=== PATIENT | female | born 1955 | race Caucasian/White ===

== ENCOUNTER 2021-03-27 13:18 | Emergency (ER) | payer OTHER ==
[~2021-03-27] VITALS: Ht 172.7 cm; Wt 156.5 kg
[2021-03-27 15:12] LABS: Albumin 3.3 g/dL (3.4-5.0); Anion Gap 8 (5-15); Blood Urea Nitrogen 13 mg/dL (7-18); Calcium 9.2 mg/dL (8.5-10.1); Carbon Dioxide 26 mmol/L (21-32); Chloride 103 mmol/L (98-107); Glucose 96 mg/dL (74-106); Sodium 137 mmol/L (136-145)
[2021-03-27 15:20] LABS: Alanine Aminotransferase 20 U/L (13-56); Alkaline Phosphatase 83 U/L (45-117); Aspartate Aminotransferase 24 U/L (15-37); BUN/Creatinine Ratio 20.6; Bilirubin, Total 0.6 mg/dL (0.2-1.0); GFR African American 122 mL/min; GFR Non-African American 100 mL/min; Total Protein 7.1 g/dL (6.4-8.2)
[2021-03-27 15:21] LABS: Basophils # (auto) 0.1 10 ^3/uL (0-0.2); Basophils % (auto) 0.7 % (0.0-2.0); Eosinophils # (auto) 0.1 10 ^3/uL (0-0.8); Eosinophils % (auto) 1.8 % (0.0-7.0); Hematocrit 42.3 % (36.0-46.0); Hemoglobin 14.3 g/dL (12.2-16.2); Lymphocytes # (auto) 2.5 10 ^3/uL (0.4-5.4); Lymphocytes % (auto) 34.8 % (10.0-50.0); Mean Corpuscular Hemoglobin 27.8 pg (28.0-32.0); Mean Corpuscular Hgb Conc. 33.8 g/dL (32.0-36.0); Mean Corpuscular Volume 82.2 fL (80.0-100.0); Monocytes # (auto) 0.5 10 ^3/uL (0-1.3); Monocytes % (auto) 6.5 % (0.0-12.0); Neutrophils % (auto) 56.2 % (37.0-80.0); Platelet Count (auto) 326 10^3/uL (140-450); Red Blood Cells 5.15 10^6/uL (4.0-5.20); Red Cell Distribution Width 15.2 % (11.8-14.3); White Blood Cell 7.2 10^3/uL (4.4-10.8)
[2021-03-27 15:28] LABS: Potassium 3.9 mmol/L (3.5-5.1)
[2021-03-27] MEDS ORDERED: METOPROLOL TARTRATE 50 MG TAB PO ONE (15:45)
[2021-03-27] MEDS ORDERED: METOPROLOL TARTRATE 1MG/1ML-5ML VIAL IV ONE (15:45)
[2021-03-27 16:13] VITALS: BP 83/54
[2021-03-27] MEDS ORDERED: METOPROLOL TARTRATE 25 MG TAB ONE (18:00)
[2021-03-27] MEDS ORDERED: METOPROLOL TARTRATE 25 MG TAB PO ONE (18:00)
== END 2021-03-27 18:07 | disposition home or self-care (01) ==
LOC: EDBD 13:18 → ER 13:18
DX: I48.91 Unspecified atrial fibrillation (principal); J18.9 Pneumonia, unspecified organism; Z88.8 Allergy status to other drugs, medicaments and biological substances; Z88.7 Allergy status to serum and vaccine
CPT/HCPCS: 36415; 71045; 80053; 84484; 85025; 93005; 96374

== ENCOUNTER 2021-09-30 00:37 | Inpatient (IN) | payer OTHER ==
[~2021-09-30] VITALS: Ht 167.6 cm; Wt 184.0 kg
[2021-09-30 02:28] LABS: Hemoglobin 10.5 g/dL (12.2-16.2); Mean Corpuscular Hemoglobin 28.1 pg (28.0-32.0); Mean Corpuscular Hgb Conc. 33.9 g/dL (32.0-36.0); Mean Corpuscular Volume 82.9 fL (80.0-100.0); Red Blood Cells 3.74 10^6/uL (4.0-5.20); Red Cell Distribution Width 13.8 % (11.8-14.3); White Blood Cell 26.1 10^3/uL (4.4-10.8)
[2021-09-30 02:35] LABS: Basophils % (manual) 0 (0.0-2.0); Blast Cells 0; Eosinophils % (manual) 0 (0-7); Myelocytes % 0; Promyelocytes % 0; Reactive Lymphocytes 0
[2021-09-30 02:41] LABS: Albumin 1.8 g/dL (3.4-5.0); Blood Urea Nitrogen 70 mg/dL (7-18); Calcium 7.8 mg/dL (8.5-10.1); Carbon Dioxide 26 mmol/L (21-32); Glucose 110 mg/dL (74-106)
[2021-09-30 02:44] LABS: Alanine Aminotransferase 10 U/L (13-56); Alkaline Phosphatase 84 U/L (45-117); Aspartate Aminotransferase 30 U/L (15-37); BUN/Creatinine Ratio 15.1; Bilirubin, Total 0.4 mg/dL (0.2-1.0); GFR African American 12 mL/min; GFR Non-African American 10 mL/min; Total Protein 5.8 g/dL (6.4-8.2)
[2021-09-30 02:46] LABS: INR 3.4 (0.9-1.15)
[2021-09-30] MEDS ORDERED: SODIUM CHLORIDE 0.9% 1,000 ML IV ONE ×3 (03:30→11:15)
[2021-09-30 04:32] LABS: Band Neutrophils % (manual) 4; Lymphocytes % (manual) 6 (10.0-50.0); Metamyelocytes % 1; Monocytes % (manual) 7 (0-12)
[2021-09-30] MEDS ORDERED: dilTIAZem 25 MG/5 ML VIAL IV ONE (05:30)
[2021-09-30] MEDS ORDERED: PIPERACILLIN-TAZOB 3.375GM 100 ML IV ONE (05:30)
[2021-09-30] MEDS ORDERED: VANCOMYCIN 1GM/250ML 250 ML IV ONE ×3 (05:30→15:45)
[2021-09-30 06:01] LABS: Magnesium 2.3 mg/dL (1.6-2.6)
[2021-09-30 06:04] LABS: Anion Gap 4.00001 (5-15); Chloride < 50 mmol/L (98-107); Potassium 2.1 mmol/L (3.5-5.1); Sodium 80 mmol/L (136-145)
[2021-09-30] MEDS ORDERED: SODIUM CHL 3% 500 ML IV ONE (06:45)
[2021-09-30] MEDS ORDERED: hydrALAZINE HCL 20 MG/ML VL IV PRN (06:45)
[2021-09-30] MEDS ORDERED: MORPHINE SULFATE INJECTION 2 MG/ML SYRG IV PRN (06:45)
[2021-09-30] MEDS ORDERED: VANCOMYCIN PER PHARMACY 0 MG IV SCH (06:45)
[2021-09-30] MEDS ORDERED: ONDANSETRON HCL 4 MG/2 ML VIAL IV PRN (06:45)
[2021-09-30] MEDS ORDERED: ALBUMIN 25% 100 ML IV ONE (06:45)
[2021-09-30] MEDS ORDERED: ACETAMINOPHEN 325 MG TAB PO PRN (06:45)
[2021-09-30] MEDS ORDERED: DOCUSATE SOD 100 MG CAP PO PRN (06:45)
[2021-09-30] MEDS ORDERED: NITROGLYCERIN 0.4 MG SL TAB SL PRN (06:45)
[2021-09-30] MEDS: dilTIAZem 125mg/125ml BAG KIT 100 ML IV SCH (07:45)
[2021-09-30 08:14] LABS: Albumin 1.9 g/dL (3.4-5.0); Calcium 8.2 mg/dL (8.5-10.1); Potassium 4.1 mmol/L (3.5-5.1)
[2021-09-30 08:16] LABS: Lactic Acid w/Reflex 2.3 mmol/L (0.4-2.0)
[2021-09-30 08:18] LABS: BUN/Creatinine Ratio 15.2; Bilirubin, Total 0.4 mg/dL (0.2-1.0)
[2021-09-30] MEDS ORDERED: FAMOTIDINE (10MG/ML) 2ML VL IV SCH (10:00)
[2021-09-30] MEDS: APIXABAN 2.5 MG TAB PO SCH ×2 (10:57→22:44)
[2021-09-30] MEDS: ZINC SULFATE 220mg CAP or TAB PO SCH (10:58)
[2021-09-30] MEDS: ASCORBIC ACID 500 MG TAB PO SCH ×2 (10:59→22:44)
[2021-09-30] MEDS: MULTIPLE VITAMIN TAB PO SCH (10:59)
[2021-09-30] MEDS ORDERED: VASOPRESSIN 50 UNITS in D5W 5% 247.5 ML IV SCH (11:15)
[2021-09-30] MEDS: POTASSIUM CHL 20MEQ/100ML 100 ML IV SCH (11:34)
[2021-09-30] MEDS: ALBUMIN 25% 100 ML IV SCH ×2 (13:31→17:48)
[2021-09-30] MEDS: SODIUM CHLOR 0.9% PF (SALINE LOCK) 10ML VIAL/SYR IV SCH ×2 (13:44→22:44)
[2021-09-30] MEDS ORDERED: HEPARIN SODIUM (PORCINE) 5000 UNITS/ML 1ML VIAL SC SCH (14:00)
[2021-09-30] MEDS: PANTOPRAZOLE 40mg/50ML NS AE 50 ML IV SCH ×3 (14:22→22:43)
[2021-09-30] MEDS ORDERED: NOREPINEPHRINE 8 MG/250ML KIT 250 ML IV ONE (14:48)
[2021-09-30] MEDS ORDERED: SODIUM CHLORIDE 0.9% 500 ML IV ONE (15:00)
[2021-09-30] MEDS ORDERED: AMIODARONE HCL 150 MG in D5W 5% 100 ML IV ONE (15:00)
[2021-09-30] MEDS ORDERED: AMIODARONE 450mg/250ml AE 250 ML IV SCH (15:00)
[2021-09-30] MEDS: NOREPINEPHRINE 8 MG/250ML KIT 250 ML IV SCH ×2 (15:07→21:14)
[2021-09-30] MEDS: PIPERACILLIN-TAZOB 2.25GM 50 ML IV SCH ×2 (16:21→22:44)
[2021-09-30 21:05] LABS: Hematocrit 29.9 % (36.0-46.0); Hemoglobin 9.6 g/dL (12.2-16.2); Mean Corpuscular Hemoglobin 26.6 pg (28.0-32.0)
[2021-09-30 21:08] LABS: Mean Corpuscular Volume 83.1 fL (80.0-100.0); Red Cell Distribution Width 14.2 % (11.8-14.3)
[2021-09-30] MEDS: AMIODARONE 450mg/250ml AE 250 ML IV SCH (21:13)
[2021-09-30 21:28] LABS: White Blood Cell 46.6 10^3/uL (4.4-10.8)
[2021-09-30 21:29] LABS: Band Neutrophils % (manual) 0; Basophils % (manual) 0 (0.0-2.0); Blast Cells 0; Eosinophils % (manual) 0 (0-7); Metamyelocytes % 0; Myelocytes % 0; Promyelocytes % 0; Reactive Lymphocytes 0
[2021-09-30 23:54] LABS: Lymphocytes % (manual) 7 (10.0-50.0); Monocytes % (manual) 8 (0-12)
[2021-10-01] MEDS: ALBUMIN 25% 100 ML IV SCH ×4 (01:09→18:00)
[2021-10-01] MEDS: NOREPINEPHRINE 8 MG/250ML KIT 250 ML IV SCH (02:36)
[2021-10-01] MEDS: dilTIAZem 125mg/125ml BAG KIT 100 ML IV SCH ×2 (02:59→23:04)
[2021-10-01] MEDS: PANTOPRAZOLE 40mg/50ML NS AE 50 ML IV SCH ×2 (02:59→08:46)
[2021-10-01] MEDS: SODIUM CHLOR 0.9% PF (SALINE LOCK) 10ML VIAL/SYR IV SCH ×3 (06:15→23:03)
[2021-10-01] MEDS: PIPERACILLIN-TAZOB 2.25GM 50 ML IV SCH (06:16)
[2021-10-01] MEDS: POTASSIUM CHL 20MEQ/100ML 100 ML IV SCH (06:24)
[2021-10-01 07:33] LABS: Hematocrit 26.3 % (36.0-46.0); Hemoglobin 8.6 g/dL (12.2-16.2); Mean Corpuscular Hgb Conc. 32.5 g/dL (32.0-36.0); Red Blood Cells 3.17 10^6/uL (4.0-5.20); Red Cell Distribution Width 14.3 % (11.8-14.3)
[2021-10-01 07:38] LABS: White Blood Cell 36.7 10^3/uL (4.4-10.8)
[2021-10-01 07:39] LABS: Band Neutrophils % (manual) 0; Basophils % (manual) 0 (0.0-2.0); Blast Cells 0; Eosinophils % (manual) 0 (0-7); Metamyelocytes % 0; Myelocytes % 0; Promyelocytes % 0; Reactive Lymphocytes 0
[2021-10-01 07:41] LABS: Potassium 4.1 mmol/L (3.5-5.1)
[2021-10-01 07:47] LABS: Albumin 2.9 g/dL (3.4-5.0); BUN/Creatinine Ratio 14.5; Bilirubin, Total 0.6 mg/dL (0.2-1.0); Total Protein 5.8 g/dL (6.4-8.2)
[2021-10-01 08:24] LABS: Lymphocytes % (manual) 12 (10.0-50.0); Monocytes % (manual) 2 (0-12)
[2021-10-01 08:50] LABS: INR 4.75 (0.9-1.15); Partial Thromboplastin Time 80.9 sec (23.6-33.0)
[2021-10-01] MEDS: ZINC SULFATE 220mg CAP or TAB PO SCH (10:00)
[2021-10-01] MEDS: ASCORBIC ACID 500 MG TAB PO SCH (10:01)
[2021-10-01] MEDS: MULTIPLE VITAMIN TAB PO SCH (10:01)
[2021-10-01] MEDS ORDERED: VANCOMYCIN 500 MG in D5W 5% 100 ML IV ONE (10:30)
[2021-10-01] MEDS ORDERED: DOPamine 1600MCG/ML D5W 250 ML IV SCH (11:00)
[2021-10-01] MEDS ORDERED: PHYTONADIONE(VitK) ORAL Susp 5mg/5ml(1mg/ml) PO ONE (11:15)
[2021-10-01] MEDS: MEROPENEM 500MG IVPB 50 ML IV SCH (11:15)
[2021-10-01] MEDS: HYDROcodone-ACET 5/325MG TAB PO PRN ×3 (11:30→20:35)
[2021-10-01] MEDS: AMIODARONE 450mg/250ml AE 250 ML IV SCH ×2 (12:00→21:33)
[2021-10-01 12:55] LABS: Hepatitis B Surface Antibody Negative (Negative)
[2021-10-01 13:34] LABS: Hepatitis A Total Antibody Negative (Negative)
[2021-10-01] MEDS ORDERED: MEROPENEM 1GM IVPB 100 ML IV SCH (14:00)
[2021-10-01 14:16] LABS: Hepatitis B Core IgM Negative
[2021-10-01 14:17] LABS: Hepatitis C Antibody Negative (Negative)
[2021-10-01 14:22] LABS: BUN/Creatinine Ratio 14.9; Potassium 4.3 mmol/L (3.5-5.1)
[2021-10-01 15:20] VITALS: BP 157/73
[2021-10-01 15:35] VITALS: BP 145/63
[2021-10-01 16:00] VITALS: BP 126/78
[2021-10-01 16:55] VITALS: BP 100/68
[2021-10-01 17:14] LABS: Urine Bacteria NONE SEEN /hpf (None Seen); Urine Blood 3+ /uL (Negative); Urine Hyaline Cast FEW /lpf (0 - 2); Urine Mucus FEW (None Seen); Urine Specific Gravity 1.025 (1.001-1.035); Urine WBC 7 /hpf (0 - 5)
[2021-10-01] MEDS: PANTOPRAZOLE 40 MG/10 ML VIAL INJ IV SCH (23:03)
[2021-10-02] MEDS: ALBUMIN 25% 100 ML IV SCH ×3 (00:47→12:23)
[2021-10-02] MEDS: HYDROcodone-ACET 5/325MG TAB PO PRN ×6 (00:47→23:03)
[2021-10-02 01:13] LABS: Protein, Urine 106.6 mg/dL (0.0-11.9); Sodium Urine < 5 mmol/L (40-220)
[2021-10-02 01:19] LABS: Creatinine, Urine 334 mg/dL (30.0-125.0)
[2021-10-02] MEDS: NOREPINEPHRINE 8 MG/250ML KIT 250 ML IV SCH (02:10)
[2021-10-02] MEDS: SODIUM CHLOR 0.9% PF (SALINE LOCK) 10ML VIAL/SYR IV SCH ×3 (07:10→22:13)
[2021-10-02 07:24] LABS: Hematocrit 23.9 % (36.0-46.0); Hemoglobin 7.8 g/dL (12.2-16.2); Mean Corpuscular Hemoglobin 27.6 pg (28.0-32.0); Mean Corpuscular Hgb Conc. 32.4 g/dL (32.0-36.0); Mean Corpuscular Volume 85.1 fL (80.0-100.0); Red Blood Cells 2.81 10^6/uL (4.0-5.20); Red Cell Distribution Width 14.4 % (11.8-14.3)
[2021-10-02 07:29] LABS: White Blood Cell 30.8 10^3/uL (4.4-10.8)
[2021-10-02 07:31] LABS: Basophils % (manual) 0 (0.0-2.0); Blast Cells 0; Eosinophils % (manual) 0 (0-7); Metamyelocytes % 0; Myelocytes % 0; Promyelocytes % 0; Reactive Lymphocytes 0
[2021-10-02 08:06] LABS: Immunoglobulin G, Serum 588 mg/dL (586-1602)
[2021-10-02 08:56] LABS: Potassium 4.4 mmol/L (3.5-5.1)
[2021-10-02 09:04] LABS: Band Neutrophils % (manual) 2; Lymphocytes % (manual) 7 (10.0-50.0); Monocytes % (manual) 7 (0-12)
[2021-10-02 09:41] LABS: BUN/Creatinine Ratio 16.3
[2021-10-02 09:42] LABS: Albumin 3.2 g/dL (3.4-5.0); Bilirubin, Total 0.7 mg/dL (0.2-1.0); Magnesium 3.4 mg/dL (1.6-2.6); Phosphorus 8.6 mg/dL (2.5-4.90); Total Protein 5.6 g/dL (6.4-8.2)
[2021-10-02] MEDS: MEROPENEM 500MG IVPB 50 ML IV SCH (10:25)
[2021-10-02] MEDS: MULTIPLE VITAMIN TAB PO SCH (10:25)
[2021-10-02] MEDS: PANTOPRAZOLE 40 MG/10 ML VIAL INJ IV SCH ×2 (10:25→22:13)
[2021-10-02] MEDS ORDERED: D5W/SOD CHLO 0.9% 500 ML IV ONE (10:30)
[2021-10-02] MEDS ORDERED: VANCOMYCIN 1GM/250ML 250 ML IV ONE (10:45)
[2021-10-02] MEDS: clonazePAM 0.5 MG TAB PO PRN ×2 (16:02→22:13)
[2021-10-02] MEDS ORDERED: PHYTONADIONE(VitK) ORAL Susp 10mg/10ml(1mg/ml) PO ONE (17:15)
[2021-10-02] MEDS: SODIUM CHLORIDE 0.9% 1,000 ML IV SCH (17:30)
[2021-10-02] MEDS: AMIODARONE 450mg/250ml AE 250 ML IV SCH (18:11)
[2021-10-02] MEDS: MIDODRINE HCL 10 MG TAB PO SCH (18:22)
[2021-10-02 22:00] VITALS: BP 94/53
[2021-10-02] MEDS: OCTREOTIDE ACETATE 100 MCG/ML VL SUBCUT SCH (22:41)
[2021-10-03] MEDS: SODIUM CHLORIDE 0.9% 1,000 ML IV SCH (02:58)
[2021-10-03] MEDS: HYDROcodone-ACET 5/325MG TAB PO PRN ×2 (03:22→20:51)
[2021-10-03 05:00] VITALS: BP 84/52
[2021-10-03] MEDS: SODIUM CHLOR 0.9% PF (SALINE LOCK) 10ML VIAL/SYR IV SCH ×3 (06:14→22:19)
[2021-10-03] MEDS: MIDODRINE HCL 10 MG TAB PO SCH ×3 (06:14→17:44)
[2021-10-03] MEDS: OCTREOTIDE ACETATE 100 MCG/ML VL SUBCUT SCH ×3 (06:15→22:18)
[2021-10-03 06:57] LABS: Hemoglobin 7.4 g/dL (12.2-16.2)
[2021-10-03 07:02] LABS: Hematocrit 22.5 % (36.0-46.0); Mean Corpuscular Hemoglobin 27.7 pg (28.0-32.0); Mean Corpuscular Hgb Conc. 32.7 g/dL (32.0-36.0); Mean Corpuscular Volume 84.6 fL (80.0-100.0); Red Blood Cells 2.66 10^6/uL (4.0-5.20); Red Cell Distribution Width 14.6 % (11.8-14.3)
[2021-10-03 07:39] LABS: Basophils % (manual) 0 (0.0-2.0); Blast Cells 0; Eosinophils % (manual) 0 (0-7); Metamyelocytes % 0; Myelocytes % 0; Promyelocytes % 0; Reactive Lymphocytes 0
[2021-10-03 07:48] LABS: INR 2.78 (0.9-1.15); Partial Thromboplastin Time 68.8 sec (23.6-33.0)
[2021-10-03 08:46] LABS: Albumin 3.3 g/dL (3.4-5.0); Potassium 5.4 mmol/L (3.5-5.1)
[2021-10-03 08:50] LABS: BUN/Creatinine Ratio 15.1; Bilirubin, Total 0.6 mg/dL (0.2-1.0); Total Protein 5.9 g/dL (6.4-8.2)
[2021-10-03 09:00] VITALS: BP 95/68
[2021-10-03] MEDS ORDERED: SODIUM BICARBONATE 8.4 % INJ 50ML VIAL IV ONE (09:00)
[2021-10-03] MEDS ORDERED: SODIUM BICARBONATE 8.4% INJ 50ML SYRINGE IV ONE (09:00)
[2021-10-03] MEDS ORDERED: SODIUM ZIRCONIUM CYCL 10 GM PAK PO ONE (09:00)
[2021-10-03] MEDS ORDERED: FUROSEMIDE 100 MG/10ML VIAL IV ONE (09:15)
[2021-10-03] MEDS ORDERED: LIDOCAINE 1% HCL (LOCAL ANESTH.) INJ 20ML MDV ID ONE ×2 (09:30→10:15)
[2021-10-03 10:17] LABS: Band Neutrophils % (manual) 3; Lymphocytes % (manual) 5 (10.0-50.0); Monocytes % (manual) 6 (0-12)
[2021-10-03] MEDS: clonazePAM 0.5 MG TAB PO PRN ×2 (10:30→17:00)
[2021-10-03] MEDS ORDERED: PHYTONADIONE(VitK) ORAL Susp 5mg/5ml(1mg/ml) PO ONE (11:00)
[2021-10-03 13:09] VITALS: BP 101/51
[2021-10-03] MEDS ORDERED: CATHFLO ACTIVASE (ALTEPLASE) 2 MG VIAL IV ONE (14:45)
[2021-10-03] MEDS ORDERED: VANCOMYCIN 750mg/250ml 250 ML IV ONE (17:00)
[2021-10-03] MEDS: AMIODARONE 450mg/250ml AE 250 ML IV SCH ×2 (17:10→23:44)
[2021-10-03] MEDS: PANTOPRAZOLE 40 MG/10 ML VIAL INJ IV SCH ×2 (17:11→22:17)
[2021-10-03] MEDS: MEROPENEM 500MG IVPB 50 ML IV SCH (17:11)
[2021-10-03] MEDS: MULTIPLE VITAMIN TAB PO SCH (17:12)
[2021-10-03] MEDS: SODIUM ZIRCONIUM CYCL 10 GM PAK PO SCH ×2 (17:13→22:18)
[2021-10-03 17:20] VITALS: BP 103/49
[2021-10-03] MEDS: ALBUMIN 25% 100 ML IV SCH ×2 (18:05→18:07)
[2021-10-03] MEDS ORDERED: ALBUMIN 25% 0 ML IV ONE (18:07)
[2021-10-03 22:00] VITALS: BP 111/61
[2021-10-04] MEDS: clonazePAM 0.5 MG TAB PO PRN (01:27)
[2021-10-04] MEDS: HYDROcodone-ACET 5/325MG TAB PO PRN ×3 (03:07→23:08)
[2021-10-04 05:00] VITALS: BP 100/43
[2021-10-04] MEDS: OCTREOTIDE ACETATE 100 MCG/ML VL SUBCUT SCH ×3 (06:15→22:45)
[2021-10-04] MEDS: MIDODRINE HCL 10 MG TAB PO SCH ×3 (06:15→17:23)
[2021-10-04] MEDS: SODIUM ZIRCONIUM CYCL 10 GM PAK PO SCH ×3 (06:15→22:44)
[2021-10-04] MEDS: SODIUM CHLOR 0.9% PF (SALINE LOCK) 10ML VIAL/SYR IV SCH ×3 (06:15→22:44)
[2021-10-04 07:13] LABS: Hematocrit 22.6 % (36.0-46.0); Hemoglobin 7.1 g/dL (12.2-16.2); Mean Corpuscular Hemoglobin 26.7 pg (28.0-32.0); Mean Corpuscular Hgb Conc. 31.3 g/dL (32.0-36.0); Mean Corpuscular Volume 85.4 fL (80.0-100.0); Red Blood Cells 2.64 10^6/uL (4.0-5.20); Red Cell Distribution Width 14.5 % (11.8-14.3)
[2021-10-04 07:19] LABS: Albumin 3.2 g/dL (3.4-5.0); Calcium 8.3 mg/dL (8.5-10.1); Potassium 5.4 mmol/L (3.5-5.1)
[2021-10-04 07:23] LABS: BUN/Creatinine Ratio 14.1; Bilirubin, Total 0.6 mg/dL (0.2-1.0); Total Protein 6.2 g/dL (6.4-8.2)
[2021-10-04 07:33] LABS: White Blood Cell 33.9 10^3/uL (4.4-10.8)
[2021-10-04 07:35] LABS: Basophils % (manual) 0 (0.0-2.0); Blast Cells 0; Metamyelocytes % 0; Promyelocytes % 0; Reactive Lymphocytes 0
[2021-10-04 08:36] LABS: Band Neutrophils % (manual) 1; Eosinophils % (manual) 1 (0-7); Lymphocytes % (manual) 7 (10.0-50.0); Monocytes % (manual) 4 (0-12); Myelocytes % 1
[2021-10-04 09:01] VITALS: BP 76/52
[2021-10-04 10:21] VITALS: BP 103/59
[2021-10-04 10:39] LABS: Acetaminophen 5.8 ug/mL (10-30); Salicylate 1.7 mg/dL (2.8-20.0)
[2021-10-04] MEDS ORDERED: VANCOMYCIN 500 MG in D5W 5% 100 ML IV ONE (11:30)
[2021-10-04 12:00] VITALS: BP 104/66
[2021-10-04] MEDS: MULTIPLE VITAMIN TAB PO SCH (13:29)
[2021-10-04] MEDS: PANTOPRAZOLE 40 MG/10 ML VIAL INJ IV SCH ×2 (13:29→22:43)
[2021-10-04] MEDS: AMIODARONE 450mg/250ml AE 250 ML IV SCH (13:33)
[2021-10-04 13:57] LABS: Hepatitis C Antibody Negative (Negative)
[2021-10-04 14:01] LABS: Hepatitis A Ab IgM Negative
[2021-10-04] MEDS: MEROPENEM 500MG IVPB 50 ML IV SCH (15:16)
[2021-10-04 17:23] VITALS: BP 96/66
[2021-10-04 22:26] VITALS: BP 109/70
[2021-10-04] MEDS: ALBUMIN 25% 100 ML IV SCH (22:43)
[2021-10-05] VITALS (14 sets, daily range): BP systolic 100–175; BP diastolic 55–92
[2021-10-05] MEDS: ALBUMIN 25% 100 ML IV SCH ×2 (05:58→14:19)
[2021-10-05] MEDS: AMIODARONE 450mg/250ml AE 250 ML IV SCH ×2 (05:59→20:28)
[2021-10-05] MEDS: SODIUM ZIRCONIUM CYCL 10 GM PAK PO SCH (06:00)
[2021-10-05] MEDS: MIDODRINE HCL 10 MG TAB PO SCH ×3 (06:00→17:26)
[2021-10-05] MEDS: SODIUM CHLOR 0.9% PF (SALINE LOCK) 10ML VIAL/SYR IV SCH ×3 (06:00→21:45)
[2021-10-05] MEDS: OCTREOTIDE ACETATE 100 MCG/ML VL SUBCUT SCH ×3 (06:00→21:45)
[2021-10-05 07:09] LABS: Hematocrit 20.2 % (36.0-46.0); Mean Corpuscular Hemoglobin 28.1 pg (28.0-32.0); Mean Corpuscular Hgb Conc. 32.8 g/dL (32.0-36.0); Mean Corpuscular Volume 85.6 fL (80.0-100.0); Red Blood Cells 2.36 10^6/uL (4.0-5.20); Red Cell Distribution Width 15.1 % (11.8-14.3)
[2021-10-05 07:14] LABS: White Blood Cell 46.7 10^3/uL (4.4-10.8)
[2021-10-05 07:15] LABS: Hemoglobin 6.6 g/dL (12.2-16.2)
[2021-10-05 07:16] LABS: Band Neutrophils % (manual) 0; Basophils % (manual) 0 (0.0-2.0); Blast Cells 0; Eosinophils % (manual) 0 (0-7); Promyelocytes % 0; Reactive Lymphocytes 0
[2021-10-05 07:34] LABS: Potassium 5.1 mmol/L (3.5-5.1)
[2021-10-05 07:59] LABS: Lymphocytes % (manual) 9 (10.0-50.0); Metamyelocytes % 4; Monocytes % (manual) 4 (0-12); Myelocytes % 2
[2021-10-05 08:36] LABS: BUN/Creatinine Ratio 13.8; Bilirubin, Total 0.6 mg/dL (0.2-1.0); Calcium 7.3 mg/dL (8.5-10.1); Total Protein 5.7 g/dL (6.4-8.2)
[2021-10-05 08:37] LABS: Albumin 3.2 g/dL (3.4-5.0)
[2021-10-05] MEDS: PANTOPRAZOLE 40 MG/10 ML VIAL INJ IV SCH ×2 (09:02→21:45)
[2021-10-05] MEDS: MULTIPLE VITAMIN TAB PO SCH (09:02)
[2021-10-05] MEDS: MEROPENEM 500MG IVPB 50 ML IV SCH (09:03)
[2021-10-05 09:47] LABS: INR 2.28 (0.9-1.15); Partial Thromboplastin Time 64.7 sec (23.6-33.0)
[2021-10-05] MEDS ORDERED: LORazepam 2MG/ML-1ML VIAL IV ONE (10:00)
[2021-10-05] MEDS ORDERED: PHYTONADIONE(VitK) ORAL Susp 10mg/10ml(1mg/ml) PO ONE (10:30)
[2021-10-05 11:17] LABS: Cholesterol 71 mg/dL (< 200)
[2021-10-05 11:20] LABS: HDL Cholesterol 17 mg/dL (40-59); LDL Cholesterol 28 mg/dL (< 100); Triglycerides 164 mg/dL (< 150)
[2021-10-05] MEDS: MORPHINE SULFATE INJECTION 2 MG/ML SYRG IV PRN (16:50)
[2021-10-05] MEDS ORDERED: VANCOMYCIN 500 MG in D5W 5% 100 ML IV ONE (17:00)
[2021-10-06] MEDS: MORPHINE SULFATE INJECTION 2 MG/ML SYRG IV PRN ×2 (04:53→20:43)
[2021-10-06 05:07] VITALS: BP 160/87
[2021-10-06 05:15] LABS: Hematocrit 23.4 % (36.0-46.0); Hemoglobin 7.5 g/dL (12.2-16.2); Mean Corpuscular Hemoglobin 27.5 pg (28.0-32.0); Mean Corpuscular Hgb Conc. 32.1 g/dL (32.0-36.0); Mean Corpuscular Volume 85.5 fL (80.0-100.0); Red Blood Cells 2.74 10^6/uL (4.0-5.20); Red Cell Distribution Width 15.3 % (11.8-14.3)
[2021-10-06 05:27] LABS: INR 1.87 (0.9-1.15); Partial Thromboplastin Time 65.4 sec (23.6-33.0)
[2021-10-06 05:46] LABS: White Blood Cell 42.9 10^3/uL (4.4-10.8)
[2021-10-06 05:47] LABS: Basophils % (manual) 0 (0.0-2.0); Blast Cells 0; Eosinophils % (manual) 0 (0-7); Promyelocytes % 0; Reactive Lymphocytes 0
[2021-10-06] MEDS: SODIUM CHLOR 0.9% PF (SALINE LOCK) 10ML VIAL/SYR IV SCH ×3 (06:00→21:49)
[2021-10-06] MEDS: MIDODRINE HCL 10 MG TAB PO SCH ×3 (06:35→17:50)
[2021-10-06 06:36] LABS: Potassium 5.3 mmol/L (3.5-5.1)
[2021-10-06] MEDS: OCTREOTIDE ACETATE 100 MCG/ML VL SUBCUT SCH ×3 (06:36→21:51)
[2021-10-06 06:37] LABS: Albumin 3.1 g/dL (3.4-5.0); BUN/Creatinine Ratio 12.5; Bilirubin, Total 0.7 mg/dL (0.2-1.0); Calcium 7.9 mg/dL (8.5-10.1); Total Protein 5.6 g/dL (6.4-8.2)
[2021-10-06 09:00] VITALS: BP 118/48
[2021-10-06 09:00] LABS: Band Neutrophils % (manual) 8; Lymphocytes % (manual) 8 (10.0-50.0); Metamyelocytes % 2; Monocytes % (manual) 3 (0-12); Myelocytes % 1
[2021-10-06] MEDS: MULTIPLE VITAMIN TAB PO SCH (09:50)
[2021-10-06] MEDS: PANTOPRAZOLE 40 MG/10 ML VIAL INJ IV SCH ×2 (09:51→21:49)
[2021-10-06] MEDS: MEROPENEM 500MG IVPB 50 ML IV SCH (10:24)
[2021-10-06] MEDS ORDERED: PHYTONADIONE(VitK) ORAL Susp 5mg/5ml(1mg/ml) PO ONE (11:30)
[2021-10-06 13:00] VITALS: BP 129/66
[2021-10-06 17:00] VITALS: BP 129/62
[2021-10-06] MEDS: ALPRAZolam 0.25 MG TAB PO PRN (18:10)
[2021-10-06 22:00] VITALS: BP 124/61
[2021-10-06] MEDS ORDERED: AMIODARONE HCL 200 MG TAB PO SCH (22:00)
[2021-10-07] MEDS: HYDROcodone-ACET 5/325MG TAB PO PRN (01:20)
[2021-10-07 05:00] VITALS: BP 101/74
[2021-10-07] MEDS: MIDODRINE HCL 10 MG TAB PO SCH (05:16)
[2021-10-07] MEDS: OCTREOTIDE ACETATE 100 MCG/ML VL SUBCUT SCH (05:17)
[2021-10-07] MEDS: SODIUM CHLOR 0.9% PF (SALINE LOCK) 10ML VIAL/SYR IV SCH (05:17)
[2021-10-07 05:52] LABS: Hematocrit 24.3 % (36.0-46.0); Mean Corpuscular Hemoglobin 28.2 pg (28.0-32.0); Mean Corpuscular Volume 85.6 fL (80.0-100.0); Red Blood Cells 2.84 10^6/uL (4.0-5.20); Red Cell Distribution Width 15.1 % (11.8-14.3)
[2021-10-07 06:06] LABS: INR 1.83 (0.9-1.15)
[2021-10-07 06:08] LABS: Basophils % (manual) 0 (0.0-2.0); Blast Cells 0; Promyelocytes % 0; Reactive Lymphocytes 0; White Blood Cell 41.9 10^3/uL (4.4-10.8)
[2021-10-07 06:46] LABS: Albumin 2.9 g/dL (3.4-5.0); Calcium 7.8 mg/dL (8.5-10.1)
[2021-10-07 06:49] LABS: BUN/Creatinine Ratio 13.6; Bilirubin, Total 0.8 mg/dL (0.2-1.0); Total Protein 5.6 g/dL (6.4-8.2)
[2021-10-07] MEDS: ALPRAZolam 0.25 MG TAB PO PRN (07:50)
[2021-10-07] MEDS ORDERED: ALBUMIN 25% 100 ML IV SCH (08:00)
[2021-10-07 08:32] LABS: Potassium 5.7 mmol/L (3.5-5.1)
[2021-10-07 08:42] LABS: Band Neutrophils % (manual) 13; Eosinophils % (manual) 1 (0-7); Lymphocytes % (manual) 4 (10.0-50.0); Metamyelocytes % 1; Monocytes % (manual) 1 (0-12); Myelocytes % 1
[2021-10-07] MEDS ORDERED: EPOETIN ALFA-EPBX 4,000 UNIT/ML VIAL SC ONE (21:00)
== END 2021-10-07 09:20 | DRG 871 ==
LOC: EDBD 00:37 → ER 00:39 → OVERFLOW 07:50 → TELE-CENTR 10-02 21:04
PROVIDERS: ADMIT Nurse Practitioner Family; ATTEND Internal Medicine
PROC: 05HY33Z Insertion of Infusion Device into Upper Vein, Percutaneous Approach (ICD-10-PCS; 2021-09-30)
PROC: 30233K1 Transfusion of Nonautologous Frozen Plasma into Peripheral Vein, Percutaneous Approach (ICD-10-PCS; 2021-10-01)
PROC: 5A1D70Z Performance of Urinary Filtration, Intermittent, Less than 6 Hours Per Day (ICD-10-PCS; principal; 2021-10-03)
PROC: 02HV33Z Insertion of Infusion Device into Superior Vena Cava, Percutaneous Approach (ICD-10-PCS; 2021-10-03)
PROC: B543ZZA Ultrasonography of Right Jugular Veins, Guidance (ICD-10-PCS; 2021-10-03)
PROC: 5A1D70Z Performance of Urinary Filtration, Intermittent, Less than 6 Hours Per Day (ICD-10-PCS; 2021-10-05)
PROC: 30233N1 Transfusion of Nonautologous Red Blood Cells into Peripheral Vein, Percutaneous Approach (ICD-10-PCS; 2021-10-05)
PROC: 5A1D70Z Performance of Urinary Filtration, Intermittent, Less than 6 Hours Per Day (ICD-10-PCS; 2021-10-07)
DX: A41.9 Sepsis, unspecified organism (principal); N17.0 Acute kidney failure with tubular necrosis; R65.21 Severe sepsis with septic shock; D62 Acute posthemorrhagic anemia; R18.8 Other ascites; E87.1 Hypo-osmolality and hyponatremia; Z68.44 Body mass index [BMI] 60.0-69.9, adult; D68.9 Coagulation defect, unspecified; K62.5 Hemorrhage of anus and rectum; B18.1 Chronic viral hepatitis B without delta-agent; K72.10 Chronic hepatic failure without coma; E88.09 Other disorders of plasma-protein metabolism, not elsewhere classified; M79.7 Fibromyalgia; I48.91 Unspecified atrial fibrillation; D75.839 Thrombocytosis, unspecified; K74.60 Unspecified cirrhosis of liver; Z20.822 Contact with and (suspected) exposure to COVID-19; E78.5 Hyperlipidemia, unspecified; E66.01 Morbid (severe) obesity due to excess calories; E87.6 Hypokalemia; I12.9 Hypertensive chronic kidney disease with stage 1 through stage 4 chronic kidney disease, or unspecified chronic kidney disease; K75.4 Autoimmune hepatitis; J45.909 Unspecified asthma, uncomplicated; K75.81 Nonalcoholic steatohepatitis (NASH); N18.9 Chronic kidney disease, unspecified; F32.A Depression, unspecified; R31.0 Gross hematuria; F41.9 Anxiety disorder, unspecified; Z79.01 Long term (current) use of anticoagulants; Z99.2 Dependence on renal dialysis; Z82.0 Family history of epilepsy and other diseases of the nervous system; Z83.3 Family history of diabetes mellitus; Z90.710 Acquired absence of both cervix and uterus
CPT/HCPCS: 36415; 36600; 71045; 74176; 76700; 76775; 80048; 80053; 80061; 80074; 80202; 80329; 81001; 82140; 82570; 82728; 82784; 82805; 82962; 83036; 83516; 83605; 83690; 83735; 83880; 83883; 83930; 84100; 84155; 84156; 84165; 84300; 84443; 85007; 85027; 85610; 85652; 85730; 86141; 86160; 86225; 86235; 86256; 86334; 86664; 86703; 86704; 86706; 86708; 86803; 86850; 86900; 86901; 86920; 87040; 87086; 87088; 87340; 87426; 90935; 93005; 93306; 96361; 96365; 96375; C9113; G0378; J2001; J2185; J2543; J3490; J7060; P9047